=== PATIENT | female | born 1980 | race Caucasian/White ===

== ENCOUNTER 2016-09-01 19:07 | Emergency (ER) | payer SELFPAY ==
[~2016-09-01 19:07] MED LIST: AUGMENTIN 875-1 EAC1 PO; BUSPAR 15MG TAB15 MG PO; BUSPIRONE5 MG PO; DESYREL 100MG100 MG PO; MINIPRESS2 MG; NORCO 325 MG-51 TA1 PO; PROPRANOLOL HYD20 MG PO; REMERON SOL15 MG/TAB; SEROQUEL300 M1 PO; TEGRETOL200 M1 PO
[2016-09-01] MEDS ORDERED: NORCO 325 MG-51 TAB PO (19:19)
[2016-09-01] MEDS ORDERED: AMOXICILLIN 50500 MG PO (19:19)
[2016-10-31] MEDS ORDERED: MINIPRESS2 MG PO ×2 (21:07→21:08)
[2016-10-31] MEDS ORDERED: DESYREL 100MG100 MG PO (21:08)
== END 2016-09-01 19:35 | disposition home or self-care (01) ==
LOC: ED 19:07
DX: K02.9 Dental caries, unspecified (principal)

== ENCOUNTER 2016-10-31 21:19 | Emergency (ER) | payer OTHER ==
[~2016-10-31 21:19] MED LIST changes: +AMOXICILLIN 50500 MG PO; +MINIPRESS2 MG PO; +NORCO 325 MG-51 TAB PO
== END 2016-10-31 21:54 | disposition home or self-care (01) ==
LOC: ED 21:19
DX: S91.204A Unspecified open wound of right lesser toe(s) with damage to nail, initial encounter (principal); X58.XXXA Exposure to other specified factors, initial encounter; Y93.A9 Activity, other involving cardiorespiratory exercise

== ENCOUNTER → 2016-11-29 | Outpatient (CLI) | payer OTHER | LOC: RAD 08:52 | DX: N92.6 Irregular menstruation, unspecified (principal) ==

== ENCOUNTER 2018-04-26 12:33 | Emergency (ER) | payer OTHER ==
[~2018-04-26] VITALS: Ht 157.5 cm; Wt 87.3 kg
[2018-04-26 13:48] LABS: EOS # 0.1 (0.04-0.40); EOS % 0.8 % (1.0-5.0); HEMATOCRIT 45.2 % (37.0-47.0); HEMOGLOBIN 15.4 g/dL (12.5-16.0); LYMPH# 1.3 (1.50-4.00); MEAN CELL VOLUME 94 fl (78-100); MEAN CORPUSCULAR HEMOGLOBIN 32 pg (27-31); MEAN CORPUSCULAR HGB CONC 34 g/dL (33-37); MEAN PLATELET VOLUME 10.4 fl (7.4-10.4); MONO # 0.5 (0.20-0.80); NEU # 4.7 (1.40-6.50); PLATELET COUNT 227 K/mm3 (130-400); RED BLOOD COUNT 4.82 M/mm3 (4.10-5.30); WHITE BLOOD COUNT 6.6 K/mm3 (4.8-10.8)
[2018-04-26 13:57] LABS: URINE APPEARANCE CLEAR; URINE BILIRUBIN NEGATIVE (NEGATIVE); URINE BLOOD NEGATIVE (NEGATIVE); URINE COLOR YELLOW; URINE GLUCOSE NEGATIVE (NEGATIVE); URINE KETONE NEGATIVE (NEGATIVE); URINE LEUKOCYTE ESTERASE NEGATIVE (NEGATIVE); URINE NITRATE NEGATIVE (NEGATIVE); URINE PROTEIN(semi-quant) NEGATIVE (NEGATIVE); URINE UROBILINOGEN NORMAL (NORMAL)
[2018-04-26 14:01] LABS: URINE MUCUS PRESENT (NOT PRESENT); URINE WBC 0-1 /hpf (0-3)
[2018-04-26] MEDS ORDERED: ZUPLENZ4 M1 PO (14:43)
[2018-04-26 15:02] VITALS: BP 138/78
== END 2018-04-26 15:02 | disposition home or self-care (01) ==
LOC: ED 12:33
PROVIDERS: Family Medicine
DX: B34.9 Viral infection, unspecified (principal); R53.81 Other malaise; Z79.899 Other long term (current) drug therapy

== ENCOUNTER 2018-07-03 23:18 | Emergency (ER) | payer OTHER ==
[~2018-07-03] VITALS: Ht 157.5 cm; Wt 83.6 kg
[~2018-07-03 23:18] MED LIST changes: +ZUPLENZ4 M1 PO
[2018-07-04] MEDS ORDERED: CEPHALEXIN500 M1 PO (00:02)
[2018-07-04 00:12] VITALS: BP 135/79
== END 2018-07-04 00:12 | disposition home or self-care (01) ==
LOC: ED 23:18
DX: A46 Erysipelas (principal); L30.9 Dermatitis, unspecified; F31.9 Bipolar disorder, unspecified; F17.200 Nicotine dependence, unspecified, uncomplicated; Z79.899 Other long term (current) drug therapy

== ENCOUNTER 2018-09-01 14:40 | Emergency (ER) | payer OTHER ==
[~2018-09-01] VITALS: Ht 157.5 cm; Wt 87.3 kg
[~2018-09-01 14:40] MED LIST changes: -BUSPAR 15MG TAB15 MG PO; +BUSPIRONE HYDRO10 MG PO; +CEPHALEXIN500 M1 PO; +SEROQUEL 2525 MG/TAB PO; -SEROQUEL300 M1 PO
[2018-09-01] MEDS ORDERED: ABILIFY5 MG PO (14:55)
[2018-09-01] MEDS ORDERED: CETIRIZINE HCL10 MG PO (14:56)
[2018-09-01] MEDS ORDERED: PREDNISONE20 MG PO (16:32)
[2018-09-01] MEDS ORDERED: EPIPEN 2-PAK1 MG/ML MR (16:32)
[2018-09-01 16:40] VITALS: BP 133/83
== END 2018-09-01 16:45 | disposition home or self-care (01) ==
LOC: ED 14:40
DX: T78.1XXA Other adverse food reactions, not elsewhere classified, initial encounter (principal); R06.02 Shortness of breath; R22.0 Localized swelling, mass and lump, head; Z91.018 Allergy to other foods; F41.9 Anxiety disorder, unspecified; F31.9 Bipolar disorder, unspecified; Z79.899 Other long term (current) drug therapy; Z88.6 Allergy status to analgesic agent; Z88.8 Allergy status to other drugs, medicaments and biological substances
CPT/HCPCS: J1200; J2930

== ENCOUNTER 2018-11-29 12:21 | Emergency (ER) | payer OTHER ==
[~2018-11-29] VITALS: Ht 157.5 cm; Wt 89.5 kg
[~2018-11-29 12:21] MED LIST changes: +ABILIFY5 MG PO; +CETIRIZINE HCL10 MG PO; +EPIPEN 2-PAK1 MG/ML MR; +PREDNISONE20 MG PO
[2018-11-29] MEDS ORDERED: SERTRALINE HYD100 MG PO (12:31)
[2018-11-29 14:19] VITALS: BP 135/72
== END 2018-11-29 14:06 | disposition home or self-care (01) ==
LOC: ED 12:21
DX: T17.228A Food in pharynx causing other injury, initial encounter (principal); F31.9 Bipolar disorder, unspecified